=== PATIENT | male | born 2000 | race Caucasian/White ===

== ENCOUNTER 2018-10-13 23:28 | Emergency (ER) | payer SELFPAY ==
[2018-10-13 23:39] VITALS: BP 131/81; PULSE 79; TEMP 98.2; BMI 20.2
--- NOTE | 2018-10-14 00:36 | PDOC ---
History of Present Illness - General Chief Complaint: Injury Stated Complaint: FALL Time Seen by Provider: 10/14/18 00:11 - History of Present Illness Initial Comments: 10/14/18 01:45 HPI: 17 y/o F with no pmh presenting following a fall at work around 10:30pm. He reports he was mopping the floors when he slipped and fell down 8 stairs. The fall was unwitnessed. He was able to get up on his own following the fall when a coworker found him and brought him to the ED. The patient said he fell down flipping over and has pain in his back, shoulders, head, pelvis, and right elbow. Patient denies vision change, palpitations, N/V, F,C, CP, SOB, abdominal pain, lightheadedness, weakness, sensory changes. PMHx: as noted above ROS: as noted SHx: Denies IVDA or tobacco use; occasional alcohol Allergies: NKDA Past History - Past Medical History Allergies/Adverse Reactions: Allergies Allergy/AdvReac Type Severity Reaction Status Date / Time No Known Allergies Allergy Verified 10/13/18 23:38 Home Medications: Ambulatory Orders NK [No Known Home Medication] 10/13/18 - Suicide/Smoking/Psychosocial Hx Smoking History: Never smoked Have you smoked in the past 12 months: No Information on smoking cessation initiated: No Hx Alcohol Use: No Drug/Substance Use Hx: No Review of Systems - Review of Systems Comments:: 10/14/18 02:23 GENERAL/CONSTITUTIONAL: No fever or chills. No weakness. HEAD, EYES, EARS, NOSE AND THROAT: No change in vision. No ear pain or discharge. No sore throat. CARDIOVASCULAR: No chest pain or shortness of breath RESPIRATORY: No cough, wheezing, or hemoptysis. GASTROINTESTINAL: No nausea, vomiting, diarrhea or constipation. GENITOURINARY: No dysuria, frequency, or change in urination. MUSCULOSKELETAL: + neck and back pain. SKIN: No rash NEUROLOGIC: No headache, vertigo, loss of consciousness, or change in strength/ sensation. ENDOCRINE: No increased thirst. No abnormal weight change HEMATOLOGIC/LYMPHATIC: No anemia, easy bleeding, or history of blood clots. ALLERGIC/IMMUNOLOGIC: No hives or skin allergy. *Physical Exam - Vital Signs Last Vital Signs Temp Pulse Resp BP Pulse Ox 98.2 F 79 20 131/81 99 10/13/18 23:38 10/13/18 23:38 10/13/18 23:38 10/13/18 23:38 10/13/18 23:38 - Physical Exam Comments: 10/14/18 02:24 GENERAL: Awake, alert, and fully oriented, in no acute distress HEAD: No signs of left frontoparietal hematoma with TTP, no lacerations or skull deformities EYES: PERRLA, EOMI, sclera anicteric, conjunctiva clear ENT: Auricles normal inspection, hearing grossly normal, nares patent, oropharynx clear without exudates. Moist mucosa NECK: Normal ROM, with BL tenderness to palpation of traps and cervical paraspinal muscles; no bony TTP LUNGS: No distress, speaks full sentences, clear to auscultation bilaterally HEART: Regular rate and rhythm, normal S1 and S2, no murmurs, rubs or gallops, peripheral pulses normal and equal bilaterally. ABDOMEN: Soft, nontender, normoactive bowel sounds. No guarding, no rebound. No masses EXTREMITIES : right elbow abrasion with no obvious deformity NEUROLOGICAL: Cranial nerves II through XII grossly intact. Normal speech, normal gait, no focal sensorimotor deficits SKIN: Warm, Dry, normal turgor, no rashes or lesions noted Medical Decision Making - Medical Decision Making 10/14/18 02:26 17 y/o F with no pmh presenting following a fall at work around 10:30pm now with head, back, shoulder, elbow pain. Vitals wnl. -CT head, CT cspine, XR TLS spine, XR pelvis -ibuprofen 600mg 10/14/18 02:40 CT with no fractures or acute pathology Discussed with patient imaging and reviewed instrucitons for DC as well as return prcxn Recommending followup with PCP Tdap bacitracin to right elbow *DC/Admit/Observation/Transfer Diagnosis at time of Disposition: Elbow pain, right Closed head injury Qualifiers: Encounter type: initial encounter Qualified Code(s): S09.90XA - Unspecified injury of head, initial encounter Back pain Qualifiers: Back pain location: thoracic back pain Chronicity: acute Back pain laterality: bilateral Qualified Code(s): M54.6 - Pain in thoracic spine - Discharge Dispostion Disposition: HOME Condition at time of disposition: Improved Decision to Admit order: No - Referrals - Patient Instructions Printed Discharge Instructions: DI for Musculoskeletal Pain Additional Instructions: Additional Instructions: Please return to the emergency department with any new or worsening symptoms or concerns including confusion, inability to understand speech, seizures, fainting , vomiting. Please follow up with your primary care physician within 72 hours - Post Discharge Activity Forms/Work/School Notes: Back to Work
[2018-10-14] MEDS ORDERED: IBUPROFEN 600 MG TABLET (FP) PO ONE (00:59)
[2018-10-14] MEDS ORDERED: ACETAMINOPHEN 325 MG TABLET (FP) ONE (01:12)
[2018-10-14] MEDS ORDERED: ACETAMINOPHEN 500 MG TABLET (FP) PO ONE (01:12)
[2018-10-14] MEDS ORDERED: DIPHTH,PERTUSS(ACELL),TET 0.5 ML DISP.SYRIN IM ONE ×2 (03:27→03:43)
--- NOTE | 2018-10-14 03:29 | PDOC ---
Documentation entered by Karina Bird SCRIBE, acting as scribe for Palak Ge MD. Palak Ge MD: This documentation has been prepared by the [facility], SCRIBE, under my direction and personally reviewed by me in its entirety. I confirm that the documentation accurately reflects all work, treatment, procedures, and medical decision making performed by me. Attending Attestation - Resident Resident Name: Lucia Sosa - ED Attending Attestation I have performed the following: I have examined & evaluated the patient, The case was reviewed & discussed with the resident, I agree w/resident's findings & plan - HPI HPI: 10/14/18 01:11 The patient is a 17 year old male with no significant PMH of who presents to the emergency department s/p fall at 10:30pm. The patient is Welsh speaking, however, family at bedside provided the history. The patient was at work cleaning the stairs and fell down 8 steps hitting his head, back, shoulder and pelvis. Pt denies LOC, seizure activity or changes in vision. Pt is now complaining of a headache, back pain, shoulder pain, and pelvis pain. The patient denies chest pain, shortness of breath, and dizziness. Denies fever , chills, cough, nausea, vomiting, diarrhea and constipation. Denies dysuria, frequency, urgency and hematuria. Allergies: NKDA - Physicial Exam PE: 10/14/18 01:54 GENERAL: Awake, alert, and fully oriented, in no acute distress HEAD: No signs of trauma EYES: PERRLA, EOMI, sclera anicteric, conjunctiva clear ENT: Auricles normal inspection, hearing grossly normal, nares patent, oropharynx clear without exudates. Moist mucosa NECK: Normal ROM, supple, no lymphadenopathy, JVD, or masses LUNGS: Breath sounds equal, clear to auscultation bilaterally. No wheezes, and no crackles HEART: Regular rate and rhythm, normal S1 and S2, no murmurs, rubs or gallops ABDOMEN: Soft, nontender, normoactive bowel sounds. No guarding, no rebound. No masses EXTREMITIES: Normal range of motion, no edema. No clubbing or cyanosis. No cords, erythema, or tenderness NEUROLOGICAL: Cranial nerves II through XII grossly intact. Normal speech, normal gait SKIN: Warm, Dry, normal turgor, no rashes or lesions noted. - Medical Decision Making 10/14/18 02:40 Patient Name: BERNARD VAUGHN THIS IS A PRELIMINARY REPORT FROM [facility] DATE OF SERVICE: 2018-10-14 01:30:03 IMAGES: [id number] EXAM: HEAD CT WITHOUT CONTRAST HISTORY: Status post fall COMPARISON: None. FINDINGS: The ventricular system is midline and nondilated. The sulcal pattern is normal for the patient's age. There is no bleed, mass, extra-axial fluid collection or mass effect. No skull fracture or skull lesion is identified. The visualized paranasal sinuses and mastoid air cells are clear. IMPRESSION: No acute pathology. Patient Name: BERNARD VAUGHN THIS IS A PRELIMINARY REPORT FROM [facility] DATE OF SERVICE: 2018-10-14 01:26:16 IMAGES: [id number] EXAM: CERVICAL SPINE CT W/O CONTR HISTORY: Status post fall COMPARISON: None. FINDINGS: There is no fracture, subluxation, prevertebral soft tissue swelling or significant degenerative changes. The lung apices are clear. IMPRESSION: No fracture. 10/14/18 03:29 Pt feels better after meds in the ER. He will be given a tdap boostrix in the ER. Bacitracin ointment for the elbow. Motrin and tylenol for the pain. Pt will be sent home with familyu and friends. Pt had no LOC
[2018-10-14] MEDS ORDERED: BACITRACIN 15 GM TUBE TOPICAL OINTMENT TP ONE (03:33)
== END 2018-10-14 03:45 | disposition home or self-care (01) ==
LOC: JER 23:28
PROC: 3E0234Z Introduction of Serum, Toxoid and Vaccine into Muscle, Percutaneous Approach (ICD-10-PCS; principal; 2018-10-13)
DX: S09.8XXA Other specified injuries of head, initial encounter (principal); M54.6 Pain in thoracic spine; M25.511 Pain in right shoulder; M25.512 Pain in left shoulder; S50.311A Abrasion of right elbow, initial encounter; W10.8XXA Fall (on) (from) other stairs and steps, initial encounter; Y93.H9 Activity, other involving exterior property and land maintenance, building and construction; Y92.69 Other specified industrial and construction area as the place of occurrence of the external cause; Y99.0 Civilian activity done for income or pay
CPT/HCPCS: 70450-TC; 72070-TC-FY; 72100-TC-FY; 72125-TC; 72170-TC-FY; 73070-TC-RT-FY; 90715; 99282-25